=== PATIENT | female | born 1960 | race Caucasian/White ===

== ENCOUNTER 2020-08-18 19:07 | Inpatient (IN) | payer BC ==
[2020-08-18 19:29] LABS: BASO % 0.8 % (0-2.0); EOS % 2.3 % (0-4.5); HEMATOCRIT 38.2 % (32.4-45.2); HEMOGLOBIN 12.7 GM/dL (10.7-15.3); LYMPH % 34.5 % (8-40); MCH 28.9 pg (25.7-33.7); MCHC 33.1 g/dl (32.0-36.0); MEAN CELL VOLUME 87.3 fl (80-96); MONO % 8.9 % (3.8-10.2); NEUT % 53.5 % (42.8-82.8); PLATELET COUNT 243 K/MM3 (134-434); RBC 4.37 M/mm3 (3.60-5.2); RDW 13.5 % (11.6-15.6); WHITE BLOOD COUNT 8.1 K/mm3 (4.0-10.0)
[2020-08-18 19:39] LABS: INR 1.34 (0.83-1.09); PROTHROMBIN TIME (PATIENT) 16.4 SEC (9.7-13.0)
[2020-08-18 19:42] LABS: ACTIVATED PTT 36.3 SECONDS (25.2-36.5)
[2020-08-18 19:53] LABS: ALBUMIN 3.8 g/dl (3.4-5.0); CALCIUM 8.8 mg/dL (8.5-10.1)
[2020-08-18 19:54] LABS: BLOOD UREA NITROGEN 11.7 mg/dL (7-18)
[2020-08-18 19:57] LABS: CREATININE 1.1 mg/dL (0.55-1.3)
[2020-08-18 19:58] LABS: BILIRUBIN,TOTAL 0.7 mg/dL (0.2-1); TOT PROT 7.1 g/dl (6.4-8.2)
[2020-08-18] MEDS ORDERED: HEPARIN NA (PORCINE) 5,000 UNITS/ML 1ML VIAL IVPUSH PRN ×2 (20:26)
[2020-08-18] MEDS ORDERED: HEPARIN INFUSION - 25,000 UNITS/500 ML INFUS.BAG IVPB ONE (20:32)
[2020-08-18] MEDS: HEPARIN SOD,PORK IN 0.45% NACL 25,000 UNITS/500 ML INFUS.BAG IVPB SCH (20:35)
[2020-08-18] MEDS ORDERED: LACTATED RINGERS SOLUTION 1000 ML INFUS.BAG IV ONE (21:25)
[2020-08-19 01:08] VITALS: BMI 31.9
[2020-08-19] MEDS ORDERED: DEXTROSE 5%-0.45% SALINE 1,000 ML IV SCH (05:00)
[2020-08-19 06:05] LABS: BASO % 0.7 % (0-2.0); EOS % 2.9 % (0-4.5); HEMATOCRIT 34.6 % (32.4-45.2); HEMOGLOBIN 11.8 GM/dL (10.7-15.3); LYMPH % 40.3 % (8-40); MCH 29.4 pg (25.7-33.7); MCHC 34.2 g/dl (32.0-36.0); MEAN CELL VOLUME 86.1 fl (80-96); MEAN PLT VOLUME 8.6 fl (7.5-11.1); MONO % 9.9 % (3.8-10.2); NEUT % 46.2 % (42.8-82.8); PLATELET COUNT 206 K/MM3 (134-434); RBC 4.02 M/mm3 (3.60-5.2); RDW 13.2 % (11.6-15.6); WHITE BLOOD COUNT 6.9 K/mm3 (4.0-10.0)
[2020-08-19 06:43] LABS: ALBUMIN 3.3 g/dl (3.4-5.0)
[2020-08-19 06:46] LABS: CREATININE 0.9 mg/dL (0.55-1.3)
[2020-08-19 06:47] LABS: BILIRUBIN,TOTAL 0.5 mg/dL (0.2-1)
[2020-08-19] MEDS ORDERED: NEBIVOLOL 5 MG TABLET (FP) PO SCH (12:15)
[2020-08-19] MEDS: CALCITRIOL 0.25 MCG CAPSULE (FP) PO SCH (12:36)
[2020-08-19] MEDS ORDERED: WARFARIN NA 5 MG TABLET PO ONE (18:00)
[2020-08-19] MEDS ORDERED: ROSUVASTATIN CA 5 MG TABLET (FP) PO SCH (22:00)
[2020-08-20] MEDS: HEPARIN SOD,PORK IN 0.45% NACL 25,000 UNITS/500 ML INFUS.BAG IVPB SCH ×2 (01:01→09:10)
[2020-08-20 06:50] LABS: HEMATOCRIT 35.2 % (32.4-45.2); HEMOGLOBIN 11.7 GM/dL (10.7-15.3); MCHC 33.3 g/dl (32.0-36.0); MEAN CELL VOLUME 87.1 fl (80-96); MEAN PLT VOLUME 9.7 fl (7.5-11.1); PLATELET COUNT 206 K/MM3 (134-434); RBC 4.04 M/mm3 (3.60-5.2); RDW 13.4 % (11.6-15.6); WHITE BLOOD COUNT 6.6 K/mm3 (4.0-10.0)
[2020-08-20 06:55] LABS: INR 1.4 (0.83-1.09); PROTHROMBIN TIME (PATIENT) 16.8 SEC (9.7-13.0)
[2020-08-20 06:58] LABS: ACTIVATED PTT 79.5 SECONDS (25.2-36.5)
[2020-08-20 07:24] LABS: CALCIUM 8.5 mg/dL (8.5-10.1)
[2020-08-20 07:25] LABS: ALBUMIN 3.2 g/dl (3.4-5.0); BLOOD UREA NITROGEN 11.8 mg/dL (7-18)
[2020-08-20 07:28] LABS: CREATININE 0.9 mg/dL (0.55-1.3)
[2020-08-20 07:29] LABS: BILIRUBIN,TOTAL 0.5 mg/dL (0.2-1); TOT PROT 5.9 g/dl (6.4-8.2)
[2020-08-20] MEDS: CALCITRIOL 0.25 MCG CAPSULE (FP) PO SCH (09:59)
[2020-08-20] MEDS ORDERED: WARFARIN NA 5 MG TABLET PO ONE (18:00)
[2020-08-20 19:24] VITALS: BP 111/58; PULSE 52; TEMP 97.9
== END 2020-08-20 19:26 | disposition home or self-care (01) | DRG 300 ==
LOC: JER 19:07 → JERBED 20:32 → J4W 22:14
PROVIDERS: ADMIT Internal Medicine; ATTEND Family Medicine
DX: I82.412 Acute embolism and thrombosis of left femoral vein (principal); D68.2 Hereditary deficiency of other clotting factors; Z86.718 Personal history of other venous thrombosis and embolism; Z79.01 Long term (current) use of anticoagulants; R00.1 Bradycardia, unspecified; Z20.822 Contact with and (suspected) exposure to COVID-19; I10 Essential (primary) hypertension
CPT/HCPCS: 36415; 71045-TC-FY; 80053; 80061; 83721; 85025; 85027; 85610; 85730; 93005; 93010; 99285-25; C9803; U0003; U0005

== ENCOUNTER 2022-03-16 19:11 | Emergency (ER) | payer BC ==
[2022-03-16 20:01] VITALS: BP 132/64; PULSE 79; RESP 20; TEMP 98; BMI 30.7
[2022-03-16] MEDS ORDERED: CEPHALEXIN MONOHYDRATE 500 MG CAPSULE (UD) ONE (22:53)
== END 2022-03-16 22:57 | disposition home or self-care (01) ==
LOC: JERFT 19:11
DX: M79.671 Pain in right foot (principal)
CPT/HCPCS: 73610-TC-RT-FY; 73630-TC-RT-FY; 93970-TC; 99284-25

== ENCOUNTER 2023-01-25 14:10 | Emergency (ER) | payer BC ==
[2023-01-25 14:23] VITALS: TEMP 98.3; BMI 32.4
[2023-01-25 14:43] LABS: BASO % 0.6 % (0-2.0); EOS % 0.1 % (0-4.5); HEMATOCRIT 40.8 % (32.4-45.2); HEMOGLOBIN 13.8 GM/dL (10.7-15.3); LYMPH % 14.2 % (8-40); MCH 28.3 pg (25.7-33.7); MCHC 33.8 g/dl (32.0-36.0); MEAN CELL VOLUME 83.9 fl (80-96); MEAN PLT VOLUME 7.9 fl (7.5-11.1); MONO % 4.8 % (3.8-10.2); NEUT % 80.3 % (42.8-82.8); PLATELET COUNT 294 10^3/uL (134-434); RBC 4.86 M/mm3 (3.60-5.2); RDW 13.6 % (11.6-15.6); WHITE BLOOD COUNT 7.8 K/mm3 (4.0-10.0)
[2023-01-25] MEDS ORDERED: SODIUM CHLORIDE 1,000 ML IV STA (14:43)
[2023-01-25] MEDS ORDERED: ONDANSETRON 4 MG/2 ML VIAL IVPUSH ONE (14:43)
[2023-01-25 14:50] LABS: INR 1.71 (0.83-1.09); PROTHROMBIN TIME (PATIENT) 19.7 SEC (9.7-13.0)
[2023-01-25 14:52] LABS: ACTIVATED PTT 40.6 SECONDS (25.2-36.5)
[2023-01-25 15:11] LABS: EPI CELLS 12 /uL (0-25.1); HYALINE CASTS 0 /uL (0-3.1); PH,URINE 6.5 (5.0-8.0); URINE APPEARANCE CLEAR; URINE BACTERIA 19 /uL (0-1359); URINE BILIRUBIN NEGATIVE (NEGATIVE); URINE COLOR YELLOW; URINE GLUCOSE (UA) NEGATIVE (NEGATIVE); URINE KETONE 1+ (NEGATIVE); URINE LEUK ESTERASE 1+ (NEGATIVE); URINE NITRITE NEGATIVE (NEGATIVE); URINE PROTEIN TRACE (NEGATIVE); URINE RBC 340 /uL (0-23.9); URINE WBC 145 /uL (0-25.8)
[2023-01-25 15:12] LABS: POTASSIUM 4.1 mmol/L (3.5-5.1)
[2023-01-25 15:14] LABS: CALCIUM 8.9 mg/dL (8.5-10.1)
[2023-01-25 15:15] LABS: ALBUMIN 4.1 g/dl (3.4-5.0); BLOOD UREA NITROGEN 16.9 mg/dL (7-18); MAGNESIUM 1.7 mg/dL (1.8-2.4)
[2023-01-25 15:18] LABS: CREATININE 1.1 mg/dL (0.55-1.3)
[2023-01-25 15:20] LABS: BILIRUBIN,TOTAL 0.8 mg/dL (0.2-1); TOT PROT 7.8 g/dl (6.4-8.2)
[2023-01-25 16:19] VITALS: BP 128/66; PULSE 86; RESP 18
== END 2023-01-25 16:49 | disposition home or self-care (01) ==
LOC: JER 14:10
PROC: 3E033NZ Introduction of Analgesics, Hypnotics, Sedatives into Peripheral Vein, Percutaneous Approach (ICD-10-PCS; principal; 2023-01-25)
PROC: 3E0337Z Introduction of Electrolytic and Water Balance Substance into Peripheral Vein, Percutaneous Approach (ICD-10-PCS; 2023-01-25)
DX: R11.2 Nausea with vomiting, unspecified (principal); R42 Dizziness and giddiness; R51.9 Headache, unspecified
CPT/HCPCS: 36415; 80053; 81003; 83690; 83735; 84484; 85025; 85610; 85730; 87086; 93005; 93010; 99284-25

== ENCOUNTER 2023-07-03 17:13 | Emergency (ER) | payer BC ==
[2023-07-03 17:41] VITALS: BP 151/73; RESP 19; TEMP 98.6; BMI 31.9
[2023-07-03 17:47] VITALS: PULSE 64
[2023-07-03] MEDS ORDERED: ACETAMINOPHEN INJECTION 100 ML IVPB ONE (17:53)
[2023-07-03] MEDS: ACETAMINOPHEN 1000 MG/100 ML BAG IVPB ONE (17:56)
[2023-07-03 18:08] LABS: BASO % 0.5 % (0-2.0); HEMATOCRIT 39.3 % (32.4-45.2); HEMOGLOBIN 13.1 GM/dL (10.7-15.3); LYMPH % 20.2 % (8-40); MCH 28.6 pg (25.7-33.7); MCHC 33.2 g/dl (32.0-36.0); MEAN PLT VOLUME 8.6 fl (7.5-11.1); MONO % 9.8 % (3.8-10.2); NEUT % 67.5 % (42.8-82.8); PLATELET COUNT 262 10^3/uL (134-434); RBC 4.57 M/mm3 (3.60-5.2); RDW 13.8 % (11.6-15.6); WHITE BLOOD COUNT 7.4 K/mm3 (4.0-10.0)
[2023-07-03 18:15] LABS: INR 2.89 (0.83-1.09); PROTHROMBIN TIME (PATIENT) 33.2 SEC (9.7-13.0)
[2023-07-03 18:18] LABS: ACTIVATED PTT 47.8 SECONDS (25.2-36.5)
[2023-07-03 18:26] LABS: POTASSIUM 4.6 mmol/L (3.5-5.1)
[2023-07-03 18:28] LABS: ALBUMIN 3.8 g/dl (3.4-5.0); CALCIUM 9.3 mg/dL (8.5-10.1)
[2023-07-03 18:31] LABS: CREATININE 0.9 mg/dL (0.55-1.3)
[2023-07-03 18:33] LABS: BILIRUBIN,TOTAL 0.7 mg/dL (0.2-1); TOT PROT 6.9 g/dl (6.4-8.2)
== END 2023-07-03 20:00 | disposition home or self-care (01) ==
LOC: JER 17:13
PROC: 3E030NZ Introduction of Analgesics, Hypnotics, Sedatives into Peripheral Vein, Open Approach (ICD-10-PCS; principal; 2023-07-03)
DX: M25.562 Pain in left knee (principal)
CPT/HCPCS: 36415; 73562-TC-LT-FY; 80053; 85025; 85610; 85730; 93971-TC; 99285-25; J0131

== ENCOUNTER 2024-04-18 20:15 | Emergency (ER) | payer BC ==
[2024-04-18 20:26] VITALS: BP 130/80; PULSE 82; RESP 18; TEMP 98.7; BMI 31.4
== END 2024-04-18 23:13 | disposition home or self-care (01) ==
LOC: JER 20:15
DX: L03.115 Cellulitis of right lower limb (principal); R22.41 Localized swelling, mass and lump, right lower limb
CPT/HCPCS: 73610-TC-RT-FY; 73630-TC-RT-FY; 93971-TC; 99284-25